=== PATIENT | female | born 1995 | race Caucasian/White ===

== ENCOUNTER 2022-01-29 10:17 | Emergency (ER) | payer SELFPAY ==
[2022-01-29 10:32] VITALS: BP 138/88
[2022-01-29] MEDS ORDERED: LIDOCAINE (1%) 10 MG/1 ML VIAL 20 ML MDV INFILTRATI ONE (10:55)
[2022-01-29] MEDS ORDERED: SODIUM CHLORIDE 0.9% IRR 500 ML BOTTLE IR ONE (10:56)
--- NOTE | 2022-01-29 10:56 | Emergency Department Report ---
Abscess Boil HPI - HPI Chief Complaint: Skin/Abscess/Foreign Body Stated Complaint: RT UNDERARM LUMP Time Seen by Provider: 01/29/22 10:53 Duration: 5 Days Location: Upper Extremity Severity: Mild History: Yes Pain, No Fever, No Purulent Drainage, No Numbness, No Foreign Body, No Previous History, No Insect Bite HPI: Patient is a 26-year-old female that comes to the ER with report of an abscess under her right arm for 1 week. Denies fever or chills. Does endorse pain. Reports no history of the same Home Medications: Previous Rx's Medication Instructions Recorded Last Taken Type Amoxicillin [Trimox CAP] 500 mg PO BID #20 capsule 01/29/22 Unknown Rx Allergies/Adverse Reactions: Allergies Allergy/AdvReac Type Severity Reaction Status Date / Time No Known Allergies Allergy Unverified 12/16/19 11:34 ED Review of Systems ROS: Stated complaint: RT UNDERARM LUMP Other details as noted in HPI Comment: All other systems reviewed and negative ED Past Medical Hx - Past Medical History Previous Medical History?: Yes Additional medical history: RA - Surgical History Past Surgical History?: No - Family History Family history: no significant - Social History Smoking Status: Never Smoker Substance Use Type: None - Medications Home Medications: Home Medications Medication Instructions Recorded Confirmed Last Taken Type Amoxicillin [Trimox CAP] 500 mg PO BID #20 capsule 01/29/22 Unknown Rx ED Abscess Boil Physical Exam - Exam General: Vital signs noted. No distress. Alert and acting appropriately. Size: 3 cm Exam: Yes Tenderness, Yes Fluctuance, Yes Normal Neurologic Exam, Yes Normal Ci rculation, No Surrounding Cellulites/Erythema, No Lymphangitis, No Crepitation, No Heart Murmur I & D Note - I & D Note I & D Note: skin cleaned. 1% lido without 2 ml for preparation. 1/4 inch incision with large amount drainage. wound cleaned. dressing applied ED Course Vital Signs 01/29/22 10:29 Temperature 97.9 F Pulse Rate 76 Respiratory 18 Rate Blood Pressure 138/88 O2 Sat by Pulse 99 Oximetry Critical care attestation.: If time is entered above; I have spent that time in minutes in the direct care of this critically ill patient, excluding procedure time. ED Medical Decision Making - Medical Decision Making Vital Signs 01/29/22 10:29 Temperature 97.9 F Pulse Rate 76 Respiratory 18 Rate Blood Pressure 138/88 O2 Sat by Pulse 99 Oximetry I&D completed. Patient tolerated well. Patient being discharged home with discharge plan of care including diet, activity medications and follow-up. She verbalizes understanding of wound care and discharge plan of care. Patient is ambulatory, not ill nontoxic and taking p.o. on discharge - Differential Diagnosis simple abscess ED Disposition Clinical Impression: Abscess Disposition: 01 HOME / SELF CARE / HOMELESS Is pt being admited?: No Does the pt Need Aspirin: No Condition: Stable Instructions: Skin Abscess Additional Instructions: keep wound clean and dry epsom salt/warm bath as we discussed med as ordered until gone motrin or tylenol for pain follow up with pcp in 1 week for recheck referral below Prescriptions: Amoxicillin [Trimox CAP] 500 mg PO BID #20 capsule Referrals: PRIMARY MD MARISOL [Primary Care Provider] - 3-5 Days MARGOT MARTINI MD [Staff Physician] - 3-5 Days Forms: Work/School Release Form(ED) Time of Disposition: 11:20
== END 2022-01-29 11:45 | disposition home or self-care (01) ==
LOC: ED 10:17
DX: L02.413 Cutaneous abscess of right upper limb (principal)
CPT/HCPCS: 99282